=== PATIENT | female | born 1965 | race Caucasian/White ===

== ENCOUNTER → 2024-11-07 | Outpatient (CLI) | payer MEDICAID, SELFPAY ==
[2024-11-07 11:37] LABS: Basophils # (Auto) 0.1 Thou/mm3 (0.0-0.2); Basophils % (Auto) 1 % (0-2.5); Eosinophils # (Auto) 0.1 Thou/mm3 (0.0-0.5); Eosinophils % (Auto) 2 % (0-10); Hematocrit 40.5 % (36.0-46.0); Hemoglobin 13.6 g/dL (12.0-16.0); Immature Granulocytes % (Auto) 0 % (0-0); Immature Granulocytes Auto 0.01 Thou/mm3 (0.00-0.00); Lymphocytes # (Auto) 1.9 Thou/mm3 (1.0-4.8); Lymphocytes % (Auto) 38 % (10-50); Mean Corpuscular HGB Conc 33.6 g/dl (31.0-37.0); Mean Corpuscular Hemoglobin 31.1 pg (25.0-35.0); Mean Corpuscular Volume 93 fL (80-100); Monocytes # (Auto) 0.4 Thou/mm3 (0.0-0.8); Monocytes % (Auto) 7 % (0-12); Neutrophils # (Auto) 2.6 Thou/mm3 (1.8-7.7); Neutrophils % (Auto) 52 % (37-80); Nucleated Red Blood Cell % 0 /100 WBC (0); Platelet Count 333 Thou/mm3 (140-440); RDW Standard Deviation 42.1 fL (36.4-46.3); Red Blood Count 4.38 Miln/mm3 (4.00-5.20); White Blood Count 5.1 Thou/mm3 (3.6-11.0)
[2024-11-07 11:52] LABS: Alanine Aminotransferase 15 U/L (10-49); Albumin, Serum 4.3 gm/dL (3.5-5.0); Albumin/Globulin Ratio 1.8 (1.2-2.2); Alkaline Phosphatase 101 U/L (46-116); Anion Gap 6 (7-16); Aspartate Amino Transferase 18 U/L (0-34); BUN/Creatinine Ratio 14 Ratio (12-20); Bilirubin,Total 0.5 mg/dL (0.3-1.2); Blood Urea Nitrogen 13 mg/dL (9-23); Calcium 9.6 mg/dL (8.3-10.6); Calcium (Corrected) 9.6 mg/dL (8.5-10.1); Carbon Dioxide 28.9 mMol/L (20.0-31.0); Chloride 108 mMol/L (98-107); Creatinine (Component) 0.9 mg/dL (0.6-1.3); Globulin 2.4 gm/dL (2.3-3.5); Glucose 108 mg/dL (74-106); Osmolality,Calculated 286 (275-295); Potassium 4.7 mMol/L (3.4-5.1); Sodium 143 mMol/L (136-145); Total Protein 6.7 gm/dL (5.7-8.2); eGFR > 60 See Note
== END | disposition home or self-care (01) ==
LOC: SCTO 10:12
PROVIDERS: PCP Nurse Practitioner Family; Referring Provider Nurse Practitioner Family; Visit Provider Nurse Practitioner Family
DX: C50.211 Malignant neoplasm of upper-inner quadrant of right female breast (principal)
CPT/HCPCS: 36415; 80053; 85025

== ENCOUNTER → 2025-01-12 | Outpatient (CLI) | payer MEDICAID, SELFPAY ==
[2025-01-12 14:05] LABS: Basophils % (Auto) 1 % (0-2.5); Eosinophils # (Auto) 0.1 Thou/mm3 (0.0-0.5); Eosinophils % (Auto) 2 % (0-10); Hematocrit 37.2 % (36.0-46.0); Hemoglobin 12.6 g/dL (12.0-16.0); Immature Granulocytes % (Auto) 1 % (0-0); Immature Granulocytes Auto 0.06 Thou/mm3 (0.00-0.00); Lymphocytes # (Auto) 2.5 Thou/mm3 (1.0-4.8); Lymphocytes % (Auto) 41 % (10-50); Mean Corpuscular HGB Conc 33.9 g/dl (31.0-37.0); Mean Corpuscular Hemoglobin 30.5 pg (25.0-35.0); Mean Corpuscular Volume 90 fL (80-100); Monocytes # (Auto) 0.4 Thou/mm3 (0.0-0.8); Monocytes % (Auto) 7 % (0-12); Neutrophils # (Auto) 2.9 Thou/mm3 (1.8-7.7); Neutrophils % (Auto) 48 % (37-80); Nucleated Red Blood Cell % 0 /100 WBC (0); Platelet Count 345 Thou/mm3 (140-440); RDW Standard Deviation 40.8 fL (36.4-46.3); Red Blood Count 4.13 Miln/mm3 (4.00-5.20)
[2025-01-12 14:19] LABS: Alanine Aminotransferase 11 U/L (10-49); Albumin, Serum 4.5 gm/dL (3.5-5.0); Alkaline Phosphatase 96 U/L (46-116); Anion Gap 8 (7-16); Aspartate Amino Transferase 16 U/L (0-34); BUN/Creatinine Ratio 16 Ratio (12-20); Bilirubin,Total 0.5 mg/dL (0.3-1.2); Blood Urea Nitrogen 13 mg/dL (9-23); Chloride 106 mMol/L (98-107); Creatinine (Component) 0.8 mg/dL (0.6-1.3); Globulin 2.3 gm/dL (2.3-3.5); Glucose 99 mg/dL (74-106); Osmolality,Calculated 279 (275-295); Potassium 4.7 mMol/L (3.4-5.1); Sodium 140 mMol/L (136-145); Total Protein 6.8 gm/dL (5.7-8.2); eGFR > 60 See Note
== END | disposition home or self-care (01) ==
LOC: SCTO 13:08
PROVIDERS: PCP Family Medicine; Referring Provider Nurse Practitioner Family; Visit Provider Nurse Practitioner Family
DX: C50.211 Malignant neoplasm of upper-inner quadrant of right female breast (principal)
CPT/HCPCS: 36415; 80053; 85025

== ENCOUNTER 2025-01-14 13:54 | Outpatient (RCR) | payer MEDICAID, SELFPAY ==
--- NOTE | 2025-01-19 01:59 | CTCFLWUP_ITS ---
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 Her history includes lumpectomy, radiation, DCIS, and LCIS. She has been taking Reclast for osteopenia (switched from Prolia due to insurance) and vitamin D supplements. Recent mammogram (December 2023) and colonoscopy were normal. Management included scheduling her overdue annual mammogram, continuing Reclast and vitamin D, recommending dietary modifications (reduced red meat, increased vegetables), and encouraging walking and aerobic activity. 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 She is currently on follow-up for her breast cancer treatment and management of osteopenia. The patient reports no significant new complaints or changes in her health status since her last visit. She mentions experiencing the same old aches and pains, which she attributes partly to menopause and partly to her medication. These symptoms appear to be chronic and ongoing, without any specific onset or change in severity noted. The patient does not report any specific impact on her daily functioning due to these symptoms. Regarding treatment adherence, the patient has been taking Reclast for her osteopenia, as her insurance did not cover Prolia. She reports no problems with taking the medication. The patient has been compliant with her vitamin D supplementation and incorporating fatty foods into her diet as recommended. The patient mentions that she has not yet had her annual mammogram scheduled. Her last mammogram was in December 2023, indicating she is due for her next screening. In terms of recent healthcare interactions, the patient reports having undergone a colonoscopy screening in [place], which was normal. No other recent specialist consultations or procedures were mentioned. Medications and Supplements - Reclast - Used for osteopenia - Reduces fracture risk - Patient switched from Prolia to Reclast due to insurance coverage issues - Vitamin D - Prolia - Discontinued - Replaced with Reclast due to insurance not covering it Review of Systems Musculoskeletal: Positive for aches and pains. Objective: Laboratory, Imaging, and Diagnostic Test Results - Mammogram (December 2022): Normal - Mammogram (December 2023): Normal - Colonoscopy screening (date not specified): Normal ONCOLOGY HISTORY: DIAGNOSIS: Stage IA (pT1a, sN0) ER positive, AZ negative, HER2/renae negative invasive ductal carcinoma of the right breast, DCIS and LCIS of the right breast. S/p lumpectomy and sentinel lymph node biopsy (10/28/2021) S/p adjuvant radiation therapy (12/07/2021 - 01/23/2022) Bilateral saline implants (1994) Anastrozole (11/16/2021-), will take for 7 years. Osteopenia, on Reclast, (01/08/2024). REASON FOR TODAY?S VISIT: Patient is here for follow up visit, DEXA results Malignant neoplasm of upper-inner quadrant of right female breast [ICD10] C50.211 DATE OF DIAGNOSIS: STAGE/TNM: TREATMENT HISTORY: Care?Plan Start?Date Cycle Day Intent PROLia?60mg?every?6?months 05/16/2022 1 180 Palliative Reclast 06/13/2023 1 365 Palliative Reclast 01/08/2024 1 365 Palliative HISTORY OF PRESENT ILLNESS: This is office follow-up visit. Ms. Ham is here at [facility] cancer center. Patient had bilateral mammogram screening done on 01/25/2024, no evidence of malignancy. Recent DEXA showed osteopenia. Patient taking calcium twice a day. Patient tolerating anastrozole well. Pending annual MRI of breast at [facility]. Denies any concerns or complaints. Reports good appetite and energy levels. Denies any cough, chest pain, abdominal pain or leg cramps. Denies any weight loss. HISTORY: Madie Ham is a 59-year-old ENG speaking female with following oncology history. September 2019: Patient had routine mammograms which apparently found some abnormality in the right breast. I do not have the mammogram reports. Since then according to Ms. Ham she had multiple mammograms. 02/01/2021: Ms. Ham had stereotactic guided biopsy of the right breast calcifications. August 2021: Patient had bilateral breast MRI in [place]. I do not have the reports. 10/28/2021: Right breast partial mastectomy, right axillary sentinel lymph node biopsy? 12/07/2021 - 01/23/2022: Ms. Ham had 6100 cGy radiation therapy to the right breast. 01/01/2022: Bone density test? 02/13/2023: Bilateral breast MRI with and without contrast 01/08/2024: Reclast started 01/15/2024: Bilateral mammogram screening -no evidence for malignancy OTHER MEDICAL HISTORY/CONDITIONS: FAMILY HISTORY: ?Clone Family Hx? 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 anastrozole - 1 mg 1 tab 1 tab po q daily 2. Citracal - 200 mg (950 mg) 1 tab Twice a Day 3. Paxil - 20 mg 1 tab Daily 4. Vitamin D - 5,000 unit 1 tab Daily 5. vitamin E - 400 unit 1 tab Daily?Palabra Meds? Medications Last Reconciled by Jeannine Belcher MA on 01/14/2025 ALLERGIES: No Known Drug Allergies REVIEW OF SYSTEMS: A complete 14-point review of systems was performed and is negative except as noted in interval history. PHYSICAL EXAMINATION: VITAL SIGNS: Temperature?98.2, B/P?120/80, Oxygen?Saturation?97% PAIN: 0 - No pain GENERAL APPEARANCE: Appears well, in no apparent distress, appropriately interactive. HEENT: Normocephalic, no temporal wasting, normal conjunctiva, no scleral icterus, normal hearing, lips without lesions, neck normal range of motion. CARDIOVASCULAR: Not assessed. PULMONARY: Normal respiratory effort, no respiratory distress or use of accessory muscles, speaking in full sentences, no tachypnea. EXTREMITIES: No pedal edema or cyanosis. SKIN: Normal skin appearance. NEUROLOGIC: Alert and oriented x4. PSHYCHIATRIC: Appropriate affect, mood normal, behavior normal, intact thought and speech. LABORATORY DATA: I have personally reviewed and interpreted each of the patient?s relevant lab tests, abnormal findings are below: Date 11/07/24 01/12/25 ??WHITE?BLOOD?COUNT?(Thou/mm3) 5.1 6.0 ??RED?BLOOD?COUNT?(Miln/mm3) 4.38 4.13 ??HEMOGLOBIN?(gm/dl) 13.6 12.6 ??HEMATOCRIT?(%) 40.5 37.2 ??PLATELET?COUNT?(Thou/mm3) 333 345 ??NEUTROPHILS?%,?AUTO?(%) 52 48 ??LYMPH?%,?AUTO?(%) 38 41 ??NEUTROPHILS,?AUTO?(Thou/mm3) 2.6 2.9 ??GLUCOSE,RANDOM?(mg/dL) 108?H 99 ??BLOOD?UREA?NITROGEN?(mg/dL) 13 13 ??CREATININE?(mg/dL) 0.90 0.80 ??SODIUM?(mmol/L) 143 140 ??POTASSIUM?(mmol/L) 4.7 4.7 ??CHLORIDE?(mmol/L) 108?H 106 ??CrCl?(CandG)?(ml/min) 77.46 86.75 ??AST/SGOT?(Unit/L) 18 16 ??ALT/SGPT?(Unit/L) 15 11 ??ALKALINE?PHOSPHATASE?(Unit/L) 101 96 ??BILIRUBIN,?TOTAL?(mg/dL) 0.5 0.5 ??PROTEIN?TOTAL?(gm/dl) 6.7 6.8 ??ALBUMIN,?SERUM?(gm/dl) 4.3 4.5 ??GLOBULIN?(gm/dl) 2.4 2.3 ??ALBUMIN/GLOBULIN?RATIO 1.8 2.0 ??CALCIUM,?SERUM?(mg/dL) 9.6 10.0 ??CALCIUM?SERUM?(CORRECTED)?(mg/dL) 9.6 10.0 ASSESSMENT/PLAN: Assessment and Plan: Fatoumata garduno, a breast cancer survivor with stage 1A, ER-positive, AZ- negative, HER2-negative invasive ductal carcinoma, presents for follow-up with a history of lumpectomy, radiation, and current treatment with Reclast for osteopenia. Breast Cancer (Stage 1A, ER-positive, AZ-negative, HER2-negative invasive ductal carcinoma) Assessment: Patient is a breast cancer survivor with a history of stage 1A, ER- positive, AZ-negative, HER2-negative invasive ductal carcinoma. She underwent lumpectomy and radiation therapy. The patient is currently in the surveillance phase of her cancer treatment, requiring regular follow-ups and annual mammograms. Plan: - Schedule annual mammogram (due now, last mammogram was in December 2023) - Continue follow-up visits every 6 months for the first five years post-treatment - Advise to avoid soy products and estrogen supplements due to high estrogen state - Recommend walking and aerobic activity - Advise to reduce red meat intake and increase vegetable consumption Osteopenia Assessment: Patient has a history of osteopenia and is currently being treated with Reclast. The medication was initiated after insurance did not cover Prolia. Reclast is considered an effective treatment, with the advantage of requiring use for only 3-4 years compared to Prolia's lifetime requirement. Plan: - Continue Reclast treatment - Emphasize the importance of taking vitamin D with fatty foods - No bone density tests recommended while on Reclast - Plan for bone density monitoring when considering discontinuation of Reclast Menopausal Symptoms Assessment: Patient reports experiencing the same old aches and pains, which are attributed partly to menopause and partly exacerbated by her current medication regimen. Plan: - Continue current management - Monitor symptoms at follow-up visits ORDERS: Order # Description [id number] CBC + Comprehensive Metabolic Panel [id number] Lab Appointment [id number] CBC + Comprehensive Metabolic Panel [id number] Lab Appointment [id number] CBC + Comprehensive Metabolic Panel [id number] Lab Appointment [id number] CBC + Comprehensive Metabolic Panel [id number] Lab Appointment [id number] CBC + Comprehensive Metabolic Panel [id number] Lab Appointment RETURN TO CLINIC: BILLING AND COMPLIANCE: I reviewed external records from providers outside my specialty as summarized above. I spent a total of 50 minutes on this patient?s care on the day of their visit excluding time spent related to any billed procedures. This time includes time spent with the patient as well as time spent documenting in the medical record, reviewing patients records and tests, obtaining history, placing orders, communicating with other healthcare professionals, counseling the patient, family or caregiver, and/or care coordination for the diagnoses above. Electronically Signed by: Donte Arteaga MD T: 1:57 AM CC: PCP: Donte Arteaga Referring: Donte Arteaga This document was completed utilizing speech recognition software. Grammatical errors, random word insertions, pronoun errors, and incomplete sentences are an occasional consequence of this system due to software limitations, ambient noise, and hardware issues. Any formal questions or concerns about the content, text or information contained within the body of this dictation should be directly addressed to the provider for clarification.
== END 2025-01-26 23:59 | disposition home or self-care (01) ==
LOC: SCTC 13:54
PROVIDERS: PCP Family Medicine; Referring Provider Internal Medicine Hematology & Oncology; Visit Provider Internal Medicine Hematology & Oncology
DX: C50.411 Malignant neoplasm of upper-outer quadrant of right female breast (principal); Z17.0 Estrogen receptor positive status [ER+]; Z17.22 Progesterone receptor negative status; Z17.32 Human epidermal growth factor receptor 2 negative status; Z90.11 Acquired absence of right breast and nipple; M85.89 Other specified disorders of bone density and structure, multiple sites; Z79.811 Long term (current) use of aromatase inhibitors
CPT/HCPCS: 96365; 99212; J3489; G0463

== ENCOUNTER → 2025-02-09 | Outpatient (CLI) | payer MEDICAID, SELFPAY ==
--- NOTE | 2025-02-09 08:45 | XR_ITS ---
Examination: Screening digital mammography, bilateral Computer aided detection 3-D breast Tomosynthesis, bilateral Date and time of exam: February 09, 2025 0817 hours No priors Indication: Screening, personal history right breast cancer Technique: Nonmagnified MLO, CC views of the breasts to been obtained, reconstructed from 3-D Tomosynthesis images. R2 computer aided detection program utilized for evaluation of suspicious masses and/or abnormal calcifications. 3-D Tomosynthesis images obtained. Findings: Scattered areas of fibroglandular density Surgical clips upper right breast consistent with patient's history treated breast cancer Implants intact Grouped microcalcifications retroareolar region left breast 7 mm circumscribed nodule upper outer left breast Impression: BI-RADS Category 0: Incomplete: Need additional imaging evaluation Recommend follow-up magnification spot compression views grouped microcalcifications retroareolar region left breast Recommend follow-up spot tomographic views 7 mm circumscribed nodule upper outer left breast Recommend bilateral breast sonography follow-up to complete workup.
== END | disposition home or self-care (01) ==
PROVIDERS: PCP Physician Assistant; Referring Provider Internal Medicine Hematology & Oncology; Visit Provider Internal Medicine Hematology & Oncology
DX: R92.0 Mammographic microcalcification found on diagnostic imaging of breast (principal); R92.323 Mammographic fibroglandular density, bilateral breasts; N63.21 Unspecified lump in the left breast, upper outer quadrant
CPT/HCPCS: 77063; 77067

== ENCOUNTER → 2025-07-08 | Outpatient (CLI) | payer MEDICAID, SELFPAY ==
[2025-07-08 10:22] LABS: Basophils # (Auto) 0.1 Thou/mm3 (0.0-0.2); Basophils % (Auto) 1 % (0-2.5); Eosinophils # (Auto) 0.1 Thou/mm3 (0.0-0.5); Eosinophils % (Auto) 2 % (0-10); Hematocrit 39.6 % (36.0-46.0); Hemoglobin 13.1 g/dL (12.0-16.0); Immature Granulocytes Auto 0.02 Thou/mm3 (0.00-0.00); Lymphocytes # (Auto) 2.0 Thou/mm3 (1.0-4.8); Lymphocytes % (Auto) 36 % (10-50); Mean Corpuscular HGB Conc 33.1 g/dl (31.0-37.0); Mean Corpuscular Hemoglobin 30.1 pg (25.0-35.0); Mean Corpuscular Volume 91 fL (80-100); Monocytes # (Auto) 0.4 Thou/mm3 (0.0-0.8); Monocytes % (Auto) 8 % (0-12); Neutrophils # (Auto) 2.8 Thou/mm3 (1.8-7.7); Neutrophils % (Auto) 52 % (37-80); Nucleated Red Blood Cell # 0.00 Thou/mm3 (0.00-0.00); Nucleated Red Blood Cell % 0 /100 WBC (0); Platelet Count 302 Thou/mm3 (140-440); RDW Standard Deviation 41.2 fL (36.4-46.3); Red Blood Count 4.35 Miln/mm3 (4.00-5.20); White Blood Count 5.4 Thou/mm3 (3.6-11.0)
[2025-07-08 10:49] LABS: Alanine Aminotransferase 12 U/L (10-49); Albumin, Serum 4.6 gm/dL (3.5-5.0); Albumin/Globulin Ratio 1.8 (1.2-2.2); Alkaline Phosphatase 92 U/L (46-116); Anion Gap 7 (7-16); Aspartate Amino Transferase 15 U/L (0-34); BUN/Creatinine Ratio 15 Ratio (12-20); Bilirubin,Total 0.5 mg/dL (0.3-1.2); Blood Urea Nitrogen 12 mg/dL (9-23); Calcium 9.7 mg/dL (8.3-10.6); Calcium (Corrected) 9.7 mg/dL (8.5-10.1); Carbon Dioxide 28.1 mMol/L (20.0-31.0); Chloride 107 mMol/L (98-107); Creatinine (Component) 0.8 mg/dL (0.6-1.3); Globulin 2.6 gm/dL (2.3-3.5); Glucose 103 mg/dL (74-106); Osmolality,Calculated 282 (275-295); Potassium 4.6 mMol/L (3.4-5.1); Sodium 142 mMol/L (136-145); Total Protein 7.2 gm/dL (5.7-8.2); eGFR > 60 See Note
== END | disposition home or self-care (01) ==
PROVIDERS: PCP Physician Assistant; Referring Provider Internal Medicine Hematology & Oncology; Visit Provider Internal Medicine Hematology & Oncology
DX: C50.211 Malignant neoplasm of upper-inner quadrant of right female breast (principal)
CPT/HCPCS: 36415; 80053; 85025

== ENCOUNTER 2025-07-16 14:07 | Outpatient (RCR) | payer MEDICAID, SELFPAY | END 2025-07-29 23:59 | disposition home or self-care (01) | LOC: SCTC 14:07 | PROVIDERS: PCP Physician Assistant; Referring Provider Physician Assistant; Visit Provider Internal Medicine Hematology & Oncology | DX: C50.211 Malignant neoplasm of upper-inner quadrant of right female breast (principal); Z17.0 Estrogen receptor positive status [ER+]; Z17.22 Progesterone receptor negative status; Z17.32 Human epidermal growth factor receptor 2 negative status; M85.89 Other specified disorders of bone density and structure, multiple sites; Z90.11 Acquired absence of right breast and nipple; Z79.811 Long term (current) use of aromatase inhibitors | CPT/HCPCS: 99212; G0463 ==